=== PATIENT | female | born 1995 | race Caucasian/White ===

== ENCOUNTER 2016-10-22 18:46 | Emergency (ER) | payer MEDICAID, OTHER ==
[~2016-10-22] VITALS: Ht 154.9 cm; Wt 51.0 kg
[2016-10-22] MEDS ORDERED: ACETAMINOPHEN WITH CODEINE 300/30MG TABLET PO ONE (20:30)
[2016-10-22 21:49] VITALS: BP 111/75
== END 2016-10-22 21:50 | disposition home or self-care (01) ==
LOC: ER 18:48
DX: K61.1 Rectal abscess (principal); A64 Unspecified sexually transmitted disease
CPT/HCPCS: 87070; 87077; 87186; 87205; 99284; Z7610

== ENCOUNTER 2017-10-14 07:59 | Emergency (ER) | payer MEDICAID, OTHER ==
[~2017-10-14] VITALS: Ht 154.9 cm; Wt 49.0 kg
[2017-10-14 11:30] VITALS: BP 101/61
== END 2017-10-14 11:46 | disposition home or self-care (01) ==
LOC: ER 09:07
DX: A60.00 Herpesviral infection of urogenital system, unspecified (principal)
CPT/HCPCS: 99283; Z7610